=== PATIENT | male | born 1995 | race Caucasian/White ===

== ENCOUNTER 2017-03-03 05:50 | Inpatient (IN) | payer BC, OTHER ==
[~2017-03-03] VITALS: Ht 182.9 cm; Wt 103.6 kg
[2017-03-03] VITALS (357 sets, daily range): BP systolic 116–144; BP diastolic 54–73; PULSE 63–74; TEMP 97.9–98.5; O2SAT 94–100
[2017-03-03 06:16] LABS: BASO % 0.2 % (0.0-2.0); EOS # 0.3 (0.0-0.7); EOS % 2.9 % (0-4.0); GRAN # 3.9 (1.4-6.5); GRAN % 44.7 % (42.2-75.2); HEMOGLOBIN 16.5 g/dl (13.5-18.0); LYMPH # 3.8 (1.2-3.4); LYMPH % 43.6 % (20.0-51.0); MEAN CELL VOLUME 87 fl (80.0-100.0); MEAN CORPUSCULAR HEMOGLOBIN 31 pg (27.0-31.0); MEAN CORPUSCULAR HGB CONC 36 g/dl (33.0-37.0); MEAN PLATELET VOLUME 9.2 fl (7.4-10.4); MONO # 0.7 (0.1-0.6); MONO % 8.3 % (1.7-9.3); PLATELET COUNT 255 K/mm3 (130-400); RED BLOOD COUNT 5.29 M/mm3 (4.20-5.60); REDCELL DISTRIBUTION WIDTH-CV 12.2 % (11.5-14.5); WHITE BLOOD COUNT 8.7 K/mm3 (4.8-10.8)
[2017-03-03 06:24] LABS: PROTHROMBIN TIME 10.9 SECONDS (9.7-12.8)
[2017-03-03 06:26] LABS: ADJUSTED CALCIUM 8.5 mg/dL (8.4-10.2); BILIRUBIN,TOTAL 0.7 mg/dL (0.0-1.0); CALCIUM 9.3 mg/dL (8.4-10.2); CREATININE, serum 0.85 mg/dL (0.66-1.25); PARTIAL THROMBOPLASTIN TIME 33.3 SECONDS (26.0-37.0); POTASSIUM 3.7 mmol/L (3.4-5.0); TOTAL PROTEIN 8.2 gm/dL (6.4-8.2)
[2017-03-04 04:05] VITALS: BP 108/52; PULSE 60; TEMP 97.4
[2017-03-04 06:54] LABS: CALCIUM 8.6 mg/dL (8.4-10.2); CREATININE, serum 0.88 mg/dL (0.66-1.25); POTASSIUM 4.1 mmol/L (3.4-5.0)
[2017-03-04 08:23] VITALS: BP 125/68; PULSE 80; TEMP 98.7
[2017-03-04 08:42] VITALS: BP 118/63; PULSE 59; TEMP 98.2
== END 2017-03-04 11:57 | disposition home or self-care (01) | DRG 309 ==
LOC: COL.ER 05:50 → MEDICAL 07:01 → ICU 07:01 → MEDICAL 14:00
PROVIDERS: Emergency Medicine; Internal Medicine
DX: I48.91 Unspecified atrial fibrillation (principal); Q23.1 Congenital insufficiency of aortic valve
CPT/HCPCS: 99223-AI; 99239; J1650; J7030; J7050

== ENCOUNTER 2017-04-14 23:01 | Emergency (ER) | payer BC ==
[~2017-04-14] VITALS: Ht 182.9 cm; Wt 102.3 kg
[2017-04-14 23:05] VITALS: TEMP 97.6
[2017-04-15 00:23] VITALS: BP 114/57; PULSE 71
== END 2017-04-15 00:23 | disposition home or self-care (01) ==
LOC: COL.ER 23:01
DX: R00.2 Palpitations (principal); I48.91 Unspecified atrial fibrillation

== ENCOUNTER → 2018-04-28 | Outpatient (CLI) | payer SELFPAY | LOC: COL.RAD 07:47 | DX: S82.144A Nondisplaced bicondylar fracture of right tibia, initial encounter for closed fracture (principal); S89.91XA Unspecified injury of right lower leg, initial encounter; S70.11XA Contusion of right thigh, initial encounter; S90.31XA Contusion of right foot, initial encounter ==